=== PATIENT | male | born 2000 | race African-American/Black ===

== ENCOUNTER 2024-08-13 12:58 | Emergency (ER) | payer SELFPAY ==
[2024-08-13 13:08] VITALS: BP 140/90; PULSE 71; RESP 16; TEMP 36.6; O2SAT 99
--- NOTE | 2024-08-13 13:20 | ED.MALEGU ---
HPI - Male Genitourinary General Chief complaint: Unspecified Stated complaint: std testing Time Seen by Provider: 08/13/24 13:23 Source: patient, RN notes reviewed and old records reviewed Mode of arrival: ambulatory Limitations: no limitations History of Present Illness HPI Narrative: 24 year old male presents to express care with concern for exposure to STD. Patient reports that he was told 2 weeks ago that a previous partner had tested positive for Chlamydia. Patient reports that he has no pain or burning of urination, denies any penis drainage or any lesions. Patient reports that he has not been with this partner for 6 weeks but concerned he should be tested. MD Complaint: possible STD exposure Onset (ago): week(s) (informed 2 weeks ago) Associated symptoms: Reports other (no symptoms) Related Data Allergies Allergy/AdvReac Type Severity Reaction Status Date / Time No Known Allergies Allergy Verified 08/13/24 13:22 Review of Systems Review of Systems: CONSTITUTIONAL: Denies fever, chills, or sweats. CARDIOVASCULAR: Denies chest pain, palpitations, or edema. RESPIRATORY: Denies cough or dyspnea. GASTROINTESTINAL: Denies abdominal pain, nausea, vomiting, or diarrhea. GENITOURINARY: Denies dysuria, frequency, urgency or any penis drainage or lesions. Denies flank pain or hematuria. SKIN: Denies rash or itching. MUSCULOSKELETAL: Denies back pain or myalgia. Denies CVA tenderness NEUROLOGIC: Denies headache All systems reviewed & are unremarkable except as noted in HPI and below PMFSH Past Medical History Medical History No pertinent past medical history Surgical History Surgical History No history of previous surgery Social History Social History Smoking status: Never smoker Alcohol intake: current Alcohol use details: social Substance use type: does not use Gender identity (if verbalized by the patient): Male Comments At time of signature, agree with nursing past medical, surgical, social and family history. There is no relevant family history pertinent to the presenting complaint Exam Narrative: GENERAL: Well-appearing, well-nourished, and in no acute distress. HEAD: Normocephalic, atraumatic. NECK: Supple. no lymph adenopathy CHEST: Clear to auscultation. No respiratory distress. no cough noted SAO2 99% on room air HEART: Regular rate and rhythm. No murmur heard. Normal peripheral pulses. ABDOMEN: Soft, nontender, nondistended, normal active bowel sounds. No CVA tenderness, denies any penis lesions or drainage, no scrotal pain or testicle pain. EXTREMITIES: Normal range of motion. No edema. SKIN: Warm, dry, no rash. NEURO: No focal deficits. Alert and oriented x3. Course Course Emergency Course: Patient is aware of diagnosis, understands and agrees to treatment plan.? Anticipatory guidance given.? Patient agrees to follow-up as directed and is aware of reasons to seek care at the emergency department. Portions of this record may have been created with voice recognition software Level of Care: Express Care Visit Vital Signs Vital signs: Vital Signs Temperature 36.6 C 08/13/24 13:08 Pulse Rate 71 08/13/24 13:08 Respiratory Rate 16 08/13/24 13:08 Blood Pressure 140/90 08/13/24 13:08 Pulse Oximetry 99 08/13/24 13:08 Oxygen Delivery Room Air 08/13/24 13:08 Temperature 36.6 C 08/13/24 13:08 Pulse Rate 71 08/13/24 13:08 Respiratory Rate 16 08/13/24 13:08 Blood Pressure 140/90 08/13/24 13:08 Pulse Oximetry 99 08/13/24 13:08 Oxygen Delivery Room Air 08/13/24 13:08 reviewed MDM - Male Genitourinary Differential Diagnosis Differential diagnosis: Likely other (concern for STD exposure, notified by partner of exposure to STD, STD testing) Medical Records Attestation: I reviewed the patient's medical records. Lab Data Attestation: I reviewed the patient's lab results. Lab results narrative: STD urine sent for GC, chlamydia, or trichomonas Critical Care Time Critical Care Time Critical Care Time: No Discharge Plan Discharge Clinical Impression: Possible exposure to STD Patient Disposition: Home, Self-Care Condition: Stable Instructions: Antibiotic Form, Sexually Transmitted Diseases (ED), Safe Sex Practices (ED) Additional Instructions: you will be tested for Gonorrhea, Chlamydia, and Trichomonas and you will be notified of test results Prescription sent to your pharmacy for Doxycycline Practice safe sex practices use condoms You must not be sexually active till 2 weeks after completion of antibiotics. If you need testing in future or more advanced testing you can call [facility]. If your symptoms persist, change or worsen significantly before you can contact your personal physician then please, without delay, go to the emergency department for further evaluation. Follow-up with PCP in 7-10 days or sooner if needed Follow up with PCP soon in regards to your blood pressure which is elevated above threshold for referral. Blood pressure above 120/80 may indicate pre-hypertension. 140/90 Patient Language: Mosotho Prescriptions: New doxycycline hyclate 100 mg tablet 100 mg PO BID 7 Days Qty: 14 0RF Follow-up/Referrals: PHYSICIAN,DAYCARE PROVIDER [Primary Care Provider] - Time of Disposition: 13:37 Quality [place] Coma Scale Eyes: Open Verbal: Oriented and Alert Motor: Follows Commands [place] Coma Total Score: 15
--- OUTSIDE RECORDS SUMMARY | 2024-08-13 14:24 | XMS_ITS | Clinical Summary ---
Author Organization [facility] Address [address] [place] [address] Care Team Providers Care Press Operator Assistant Name Role Phone Unavailable Primary Care Provider Unavailabl e Social History Tobacco Use Types Packs/Day Years Used Date Smoking Tobacco: Never Assessed Sex and Gender Information Value Date Recorded Sex Assigned at Not on file Legal Sex Male 8:37 PM PDT Gender Identity Not on file Sexual Orientation Not on file Plan of Treatment Health Maintenance Due Date Last Done Comments Dental Prophylaxis 2000 Meningococcal B Vaccine Aged Out No l onger eligible based on patient's age to complete this topic Insurance [facility] PPO
--- OUTSIDE RECORDS SUMMARY | 2024-08-13 14:24 | XMS_ITS | Clinical Summary ---
Author Organization [facility] Address [address] [place] [address] Care Team Providers Care Hematology Nurse Educator Name Role Phone Unavailable Primary Care Provider Unavailabl e Source Comments [facility],non-owned Affiliates and Associated Physician Practices is amultiple site organization consisting of ambulatory clinics and hospital sitesin [place], [place], [place] and [place]. This disclosure is being madepursuant to the Care Everywhere program and may not contain all information available regarding this patient. Last updated 18.[facility] Allergies No known active allergies Medications * Be aware that medications may not be up to date on this document. Alwaysverify current medications with the patient. Medication Sig Dispensed Refills Start Date End Date Status ibuprofen (Motrin) 800 MG tablet Take 1 (one) tablet by mouth every 12 hours as needed for Pain 15 tablet 07/25/2023 Active Active Problems Problem Noted Date Diagnosed Date Abscess of left hand 05/11/2016 Assessment & Plan (05/12/2016 7:44 AM COLLECTION ADVISOR): Assessment: Jin is a 16 yo with no contributory PMH presenting with left hand cellulitis and abscess with clinical worsening despite clindamycin therapy now s/p I&D (05/11). Staph aureas (either MRSA or MSSA) is most likely. Clinical worsening despite clindamycin therapy most likely due to insufficient antibiotic time (3d) and early abscess formation with poor antibiotic penetration. Clindamycin resistant staph aureus is also a consideration given ~77% community sensitivity. Osteomyelitis a consideration though less likely with short duration of symptoms. Pt followed by orthopedic surgery. Requires hospitalization due to need for close monitoring and IV antibiotics. Plan: -Serial wound checks -If no improvement and/or worsening, change antibiotics to IV vancomycin -follow wound culture - Clindamycin 600 mg IV Q6 - Wound care per orthopedic surgery team -prn tylenol, motrin, oxycodone, with morphine for severe pain -follow pain closely and consider scheduled naproxen Assessment & Plan (05/11/2016 11:39 PM COLLECTION ADVISOR): Assessment: Jin is a previously healthy 16 yo who presents with worsening cellulitis of left hand with abscess development requiring incision and drainage and inpatient admission for IV antibiotics. Without history of animal bite or frequent exposure to swimming pools or other possible sources of gram negative bacteria, most likely source of infection is staph or strep. Staph aureas (either MRSA or MSSA) is most likely in the setting of abscess formation. Patient was started on clindamycin as outpatient but only received three doses of the medication so this should not be considered treatment failure. Antibiogram demonstrates 100% susceptibility of staph and strep to clindamycin and now that abscess has been drained medicine can be more effective in extinguishing infection. Will start with IV clindamycin (high dose) and plan to continue with oral clindamycin as an outpatient. Orthopedic surgery to see patient in the morning for dressing change and monitoring of drainage. Plan: - Admit to general medicine team; Dr. Linares - Clindamycin 600 mg Q6 - Wound care per orthopedic surgery team - Regular Diet - Vitals Q8 - Up as tolerated MRSA (methicillin resistant staph aureus) cultur e positive Social History Tobacco Use Types Packs/Day Years Used Date Smoking Tobacco: Passive [place] Exposure - Never Smoker Alcohol Use Standard Drinks/Week Comments No 0 (1 standard drink = 0.6 oz pur e alcohol) Sex and Gender Information Value Date Recorded Sex Assigned at Not on file Gender Identity Not on file Sexual Orientation Not on file Last Filed Vital Signs Vital Sign Reading Time Taken Comments Blood Pressure 132/90 07/25/2023 9:26 PM COLLECTION ADVISOR Pulse 70 07/25/2023 9:26 PM COLLECTION ADVISOR Temperature 36.8 C (98.3 F) 07/25/2023 9:26 PM COLLECTION ADVISOR Respiratory Rate 16 07/25/2023 9:26 PM COLLECTION ADVISOR Oxygen Saturation 100% 07/25/2023 9:26 PM COLLECTION ADVISOR Inhaled Oxygen Concentration - - Weight 96.2 kg (212 lb) 07/25/2023 9:26 PM COLLECTION ADVISOR Height 188 cm (6' 2 ) 07/25/2023 9:26 PM COLLECTION ADVISOR Body Mass Index 27.22 07/25/2023 9:26 PM COLLECTION ADVISOR Plan of Treatment Health Maintenance Due Date Last Done Comments HIV SCREENING 2015 HPV VACCINE (1 - Male 3-dose series) 2015 HEPATITIS C SCREENING 02/25/2018 DTAP/TDAP/TD VACCINES (1 - Tdap) 2019 HEPATITIS B VACCINE (1 of 3 - 19+ 3-dose series) 2019 COVID-19 VACCINE (1 - season) 2024 INFLUENZA VACCINE (#1) 2024 7, 03/10/2016, 04/15/2011, Additional history exists DEPRESSION SCREENING 05/28/2024 ZOSTER VACCINE (1 of 2) 2050 HIB VACCINE Aged Out No longer eligi ble based on patient's age to complete this topic MENINGOCOCCAL (Group B) VACCINE SHARED DECISION-MAKING Aged Out No longer eligible based on patient's age to complete this topic MENINGOCOCCAL GROUPS A/C/Y/W VACCINE Aged Out No longer eligible based on patient's age to complete this topic PNEUMOCOCCAL VACCINE Aged Out No long er eligible based on patient's age to complete this topic Additional Health Concerns Infection Onset Date Last Indicated MRSA 05/11/2016 05/11/2016 Advance Directives * Full Code (Latest Code Status on File) Date Activated Date Inactivated Comments 05/11/2016 8:28 PM 05/12/2016 7:08 PM
--- OUTSIDE RECORDS SUMMARY | 2024-08-13 14:24 | XMS_ITS | Encounter Summary ---
Author Organization [facility] Address [address] [place] [address] Care Team Providers Care Natural Sciences Manager Name Role Phone Unavailable Primary Care Provider Unavailabl e Prior Encounters Date Type Department Care Team Description 06/16/2019 Converted 13x Documents [facility] [address] [place] [id number] <No scans attached> Plan of Treatment Not on file Procedures Procedure Name Priority Date/Time Associated Diagnosis Comments CANCELLED APPOINTMENT Routine 04/01/2021 2:00 AM CDT Visit Diagnoses Not on file Insurance [facility] PPO
[2024-08-13 20:26] LABS: Trichomonas Vag PCR NOT DETECTED (NOT DETECTE)
[2024-08-13 20:52] LABS: Chlamydia trachomatis NOT DETECTED (NOT DETECTE); Neisseria gonorrhoeae PCR NOT DETECTED (NOT DETECTE)
== END 2024-08-13 13:46 | disposition home or self-care (01) ==
PROVIDERS: Emergency Provider Registered Nurse
DX: Z11.3 Encounter for screening for infections with a predominantly sexual mode of transmission (principal)
CPT/HCPCS: 87491; 87591; 87661; 99203; G0463